=== PATIENT | male | born 1955 | race African-American/Black ===

== ENCOUNTER 2017-08-27 08:26 | Observation (INO) | payer BC, SELFPAY ==
[2017-08-27 08:59] LABS: #Basophils 0.1 thou/uL (0.0-0.2); #Eosinphils 0.2 thou/uL (0.0-0.7); #Lymphocytes 1.7 thou/uL (1.20-3.40); #Monocytes 0.8 thou/uL (0.11-0.59); %Basophils 0.9 % (0.0-1.0); %Eosinophils 1.7 % (0.0-10.0); %Lymphocytes 17.6 % (21.0-51.0); %Monocytes 8.3 % (0.0-10.0); %Neutrophils 71.4 % (42.0-75.0); Hemoglobin 16.6 g/dL (14.0-18.0); Mean Corpuscular HGB CONC 34.2 g/dL (32.0-36.0); Mean Corpuscular Volume 87.6 fl (80.0-94.0); Mean Platelet Volume 7.9 fL (7.4-10.4); Platelet Count 203 thou/uL (130-400); RBC Distribution Width 12.5 % (11.5-14.5); Red Blood Cell (RBC) Count 5.55 mill/uL (4.70-6.10); White Blood Cell (WBC) Count 9.8 thou/uL (4.8-10.8)
[2017-08-27] MEDS ORDERED: Nitroglycerin 0.4 MG TAB (25 Tab Bottle) ONE (08:59)
[2017-08-27 09:10] LABS: PTT 32.1 SEC (22.9-36.1)
[2017-08-27 09:19] LABS: CKMB 1.9 ng/mL (0-6.6); Troponin I Less than 0.010 ng/mL (< 0.028)
[2017-08-27 09:20] LABS: ALT (SGPT) 61 U/L (8-55); AST (SGOT) 36 U/L (5-34); Albumin 4.1 g/dL (3.4-4.8); Alkaline Phosphatase 120 U/L (40-150); Anion Gap 12 mmol/L (10-20); BUN (Urea Nitrogen) 13 mg/dL (8.4-25.7); Bilirubin, Total 0.6 mg/dL (0.2-1.2); CK (CPK) 149 U/L (30-200); Calc. Creatinine Clearance 0 mL/min (70-130); Calcium 9.5 mg/dL (7.8-10.44); Carbon Dioxide 23 mmol/L (23-31); Chloride 106 mmol/L (98-107); Estimated GFR-MDRD 74; Globulin 3.1 g/dL (2.4-3.5); Glucose 113 mg/dL (80-115); Potassium 4.3 mmol/L (3.5-5.1); Protein, Total 7.2 g/dL (5.8-8.1); Sodium 137 mmol/L (136-145)
--- NOTE | 2017-08-27 09:20 | RAD ---
SINGLE VIEW CHEST: Date: 08/27/17 COMPARISON: 11/17/15. HISTORY: Chest pain. FINDINGS: Single view of the chest shows a normal sized cardiomediastinal silhouette. The patient is status pos t sternotomy. There is no evidence of consolidation, mass, or pleural effusion. Degenerative changes are seen in the spine. IMPRESSION: No evidence of acute cardiopulmonary disease. POS: [facility]
[2017-08-27] MEDS ORDERED: Nitroglycerin 2% Ointment 1 INCH/1 GM Packet ONE (10:23)
[2017-08-27] MEDS ORDERED: Morphine 4 MG/ML VIAL ONE (10:23)
[2017-08-27 12:27] LABS: Troponin I 0.011 ng/mL (< 0.028)
--- NOTE | 2017-08-27 13:09 | HP ---
PRIMARY CARE PHYSICIAN: Ms. Austin at [facility]. INTEGRITY CONSULTANT: Dr. Darrian Fink. CHIEF COMPLAINT: Chest pain. HISTORY OF PRESENT ILLNESS: Mr. Tariq is a very pleasant 62-year-old gentleman that has a history of hypertension and coronary artery disease. He had a 3-vessel bypass approximately a year ago in 2016. He says that he had been doing fine since his bypass surgery other than having some dyspn ea on exertion off and on, but he says last night he woke up at about 4:00 in the morning with chest pain from sleep. He says it was pounding and sharp in character, and on the left side of his chest. He said he had difficulty getting comfortable and could barely get himself up. He says that the saurabh n went into the left arm and he was short of breath with this as well. He tried to wait it out, but then called his son to take him to the hospital. He says he arrived at the emergency room about 8:00 in the morning and was given 3 sublingual nitroglycerin and some aspirin. The pain started to impro ve and then completely went away after he was given morphine. He says he has never had pain like thi s before in the past and the way they detected as heart problems before was with shortness of breath. The patient also denies any leg swelling or edema. He does complain of some dyspnea on exertion, b ut no PND, no orthopnea, no palpitations. REVIEW OF SYSTEMS: Constitutional: No fevers, chills, no night sweats, no weight loss. HEENT: No headaches, no dizziness, no visual changes other than that he needs glasses. No sore throat, rhinorr hea, neck pain, no adenopathy. Pulmonary: No hemoptysis, no cough, no wheezing. Cardiovascular: I s as the history of present illness. Gastrointestinal: He denies any nausea, no vomiting, no hemate mesis, no change in bowels. Genitourinary: No urinary frequency, hematuria, no hesitancy. Musculos keletal: No muscle pains, weakness, or joint pains. Neurologic: No focal weakness, numbness, no se izures. Psychiatric: No symptoms of anxiety or depression. Skin and Integument: No skin changes. No rash. PAST MEDICAL HISTORY: Significant for coronary artery disease and hypertension. PAST SURGICAL HISTORY: He has had a 3-vessel bypass a year ago and had a stent placed in November. ALLERGIES: ALBUTEROL, which causes him to itch. SOCIAL HISTORY: He is a nonsmoker. He occasionally drinks. He is single. He has 8 children. He w ishes to be a full code and his surrogate decision maker is Guerrero Tariq, his son, and he is a t the bedside today. FAMILY HISTORY: Significant for heart disease in his brother as well as diabetes in his brother and his mother had bone cancer diagnosed in . CURRENT MEDICATIONS: That he brought in to the ER include metoprolol 50 mg twice a day, simvastatin 40 mg daily, Plavix 75 mg daily, Naprosyn 500 mg twice a day, Flexeril 10 mg twice a day, Tylenol #4 as needed, Imdur extended release 30 mg daily, lisinopril 20 mg daily, aspirin 81 mg a day. PHYSICAL EXAMINATION: GENERAL: He is alert and oriented. He appears to be in no acute distress. VITAL SIGNS: Blood pressure was 137/90, heart rate 85, respiratory rate is 17, temperature is 98.7. HEENT: His pupils are equal, round, and reactive. Extraocular muscles are intact. His sclerae are anicteric. Throat: There is no erythema, no exudates. NECK: No adenopathy, no bruits. LUNGS: Clear to auscultation. I did not appreciate any wheezing or rales. CARDIOVASCULAR: He has a normal S1, S2. I did not appreciate an S3 or S4. No murmurs, clicks, or r ubs. ABDOMEN: Obese, it is soft, it is nontender, nondistended. Positive for bowel sounds. No rebound, no guarding. EXTREMITIES: There is no clubbing, cyanosis, no edema. NEUROLOGICALLY: The exam is grossly nonfocal. LABORATORY AND X-RAY FINDINGS: On his EKG, it is sinus rhythm, the rate is 80. He has an incomplete right bundle branch block. This is by my reading. White blood cell count is 9.8, hemoglobin 16.6, hematocrit is 48.6, platelet count is 203. Sodium 137, potassium 4.3, chloride is 106, CO2 is 23, BU N of 13, creatinine 1.21, glucose is 113. ASSESSMENT AND PLAN: This is a 62-year-old gentleman, who has, 1. A history of coronary artery disease with a bypass surgery approximately a year ago. He came in with chest pain. He states that he is compliant with medications; however, he has developed this harish st pain, which is somewhat atypical. As a precaution, we will place him in observation. Continue to trend his cardiac enzymes and we will get a nuclear stress test to help determine whether he has rec urrent active or acute coronary syndrome. If his stress test is negative and his symptoms continue t o be resolved, then likely he can follow up with his primary diamond wheel molder in the outpatient setting. 2. Hypertension. We will continue his usual medications for blood pressure as well as p.r.n. medica tions as needed.
[2017-08-27] MEDS ORDERED: Milk Of Magnesia 30 ML UDCUP PO PRN (13:33)
[2017-08-27] MEDS ORDERED: Nitroglycerin 0.4 MG TAB (25 Tab Bottle) PO PRN (13:33)
[2017-08-27] MEDS ORDERED: Acetaminophen 325 MG TAB PO PRN (13:33)
[2017-08-27] MEDS ORDERED: Temazepam 15 MG CAP PO PRN (13:33)
[2017-08-27] MEDS ORDERED: Mag-Al 1200 mg/1200 mg/30 ML UDCUP PO PRN (13:33)
[2017-08-27] MEDS ORDERED: Ondansetron ODT 4 MG TAB PO PRN (13:33)
[2017-08-27] MEDS ORDERED: hydrALAZINE 20 MG/ML VIAL SLOW IVP PRN (13:33)
[2017-08-27 14:51] VITALS: BMI 31.1
[2017-08-27] MEDS: Nitroglycerin 2% Ointment 1 INCH/1 GM Packet TOP SCH ×2 (15:25→21:19)
[2017-08-27 15:37] LABS: Cardiac Risk 4.4 (Less than 4.5)
[2017-08-27 15:42] LABS: Troponin I Less than 0.010 ng/mL (< 0.028)
[2017-08-28 04:50] LABS: #Basophils 0.1 thou/uL (0.0-0.2); #Eosinphils 0.2 thou/uL (0.0-0.7); #Lymphocytes 1.9 thou/uL (1.20-3.40); #Monocytes 0.8 thou/uL (0.11-0.59); #Neutrophils 3.6 thou/uL (1.40-6.50); %Basophils 0.9 % (0.0-1.0); %Eosinophils 2.4 % (0.0-10.0); %Lymphocytes 29.5 % (21.0-51.0); %Monocytes 11.9 % (0.0-10.0); %Neutrophils 55.4 % (42.0-75.0); Hemoglobin 15.8 g/dL (14.0-18.0); Mean Corpuscular HGB CONC 34.8 g/dL (32.0-36.0); Mean Corpuscular Hemoglobin 30.8 pg (27.0-31.0); Mean Corpuscular Volume 88.5 fl (80.0-94.0); Mean Platelet Volume 7.8 fL (7.4-10.4); Platelet Count 179 thou/uL (130-400); RBC Distribution Width 12.4 % (11.5-14.5); Red Blood Cell (RBC) Count 5.15 mill/uL (4.70-6.10); White Blood Cell (WBC) Count 6.6 thou/uL (4.8-10.8)
[2017-08-28 05:13] LABS: Anion Gap 11 mmol/L (10-20); BUN (Urea Nitrogen) 12 mg/dL (8.4-25.7); Calc. Creatinine Clearance 84 mL/min (70-130); Calcium 9.4 mg/dL (7.8-10.44); Carbon Dioxide 27 mmol/L (23-31); Chloride 104 mmol/L (98-107); Estimated GFR-MDRD 77; Glucose 113 mg/dL (80-115); Potassium 4.4 mmol/L (3.5-5.1); Sodium 138 mmol/L (136-145)
[2017-08-28] MEDS: Nitroglycerin 2% Ointment 1 INCH/1 GM Packet TOP SCH ×2 (05:26→13:56)
[2017-08-28] MEDS ORDERED: ADENOSINE 60 MG/20 ML VIAL ONE (07:25)
[2017-08-28] MEDS ORDERED: Enoxaparin Sodium 40 MG/0.4 ML SYRINGE SC SCH (09:00)
[2017-08-28] MEDS ORDERED: Aspirin 325 MG TAB PO SCH (09:00)
[2017-08-28 12:02] VITALS: BP 176/94; TEMP 98.1
--- NOTE | 2017-08-28 14:48 | NM ---
NUCLEAR MEDICINE CARDIAC STRESS TEST WITH EJECTION FRACTION: HISTORY: Chest pain, coronary artery bypass graft. Stent for hypertension. FINDINGS: Stress and rest were performed after the intravenous administration of 27 and 9.7 mCi technetium 99m sestamibi, respectively. No evidence of scar or ischemia. Normal wall motion. Ejection fraction is 75%. IMPRESSION: Normal exam. POS: [facility]
--- NOTE | 2017-08-28 15:05 | PDOC.PN ---
- Subjective Encounter Start Date: 08/28/17 Encounter Start Time: 15:03 Mr. Tariq was seen for follow-up. He does not have any complaints. His chest is feeling better. - Objective Resuscitation Status: Resuscitation Status FULL:Full Resuscitation MAR Reviewed: Yes Vital Signs & Weight: Vital Signs (12 hours) Temp Pulse Resp BP Pulse Ox 08/28/17 11:54 98.1 F 84 16 176/94 H 98 08/28/17 08:00 97.9 F 81 18 08/28/17 07:54 97.9 F 81 18 108/72 96 08/28/17 04:25 97.9 F 86 16 112/66 96 Weight Weight 198 lb 9.6 oz I&O: 08/27/17 08/28/17 08/29/17 06:59 06:59 06:59 Intake Total 960 Balance 960 Result Diagrams: 08/28/17 04:22 08/28/17 04:22 Phys Exam - Physical Examination HEENT: PERRLA Respiratory: no wheezing, no rales, no rhonchi, clear to auscultation bilateral Cardiovascular: RRR, no significant murmur, no rub Gastrointestinal: soft, non-tender, positive bowel sounds Musculoskeletal: no edema Dx/Plan (1) Chest pain Code(s): R07.9 - CHEST PAIN, UNSPECIFIED Status: Acute (2) Coronary artery disease Code(s): I25.10 - ATHSCL HEART DISEASE OF [place] CORONARY ARTERY W/O ANG PCTRS Status: Chronic (3) Hypertension Code(s): I10 - ESSENTIAL (PRIMARY) HYPERTENSION Status: Chronic - Plan * Chest pain- likely non-cardiac * Stress test was negative * He is stable for discharge home..
--- NOTE | 2017-08-28 16:04 | DIS ---
DATE OF ADMISSION: 08/27/2017 DATE OF DISCHARGE: 08/28/2017 PRIMARY CARE PHYSICIAN: Natalie Austin N.P. DISCHARGE DISPOSITION: Home. PRIMARY DISCHARGE DIAGNOSES: 1. Chest pain, probable noncardiac. 2. Coronary artery disease. 3. Hypertension. 4. Dyslipidemia. DISCHARGE MEDICATIONS: Include simvastatin 40 mg at bedtime, metoprolol 50 mg twice a day, lisinopri l 20 mg daily, isosorbide mononitrate 30 mg daily extended release, Flexeril 10 mg twice a day, Plavi x 75 mg daily, and aspirin 81 mg a day. CODE STATUS: FULL CODE. ALLERGIES: To ALBUTEROL. HOSPITAL COURSE: Mr. Tariq is a pleasant 62-year-old gentleman who presented to the emergency [facility] with complaints of chest pain. The pain was a bit atypical in characteristics and that it awoke hi m from sleep and it was sharp and stabbing in character; however, due to his extensive coronary arter y disease history, he was placed in observation and ruled out. He underwent a nuclear stress test wh ich was negative. His symptoms had actually resolved the following day and he is being discharged ho md to have close followup with Dr. Fink in which he already has an appointment scheduled in about a week and also with his primary care physician in 1-2 weeks as well.
== END 2017-08-28 16:11 | disposition home or self-care (01) ==
LOC: ERS 08:26 → INTOOBSV 11:26 → ERHOLD 11:26 → 2SW 14:37
PROVIDERS: ADMIT Internal Medicine; ATTEND Internal Medicine
DX: R07.89 Other chest pain (principal); I25.10 Atherosclerotic heart disease of native coronary artery without angina pectoris; I10 Essential (primary) hypertension; E78.5 Hyperlipidemia, unspecified; Z88.8 Allergy status to other drugs, medicaments and biological substances; Z95.1 Presence of aortocoronary bypass graft; Z79.82 Long term (current) use of aspirin; Z79.02 Long term (current) use of antithrombotics/antiplatelets; Z79.899 Other long term (current) drug therapy
CPT/HCPCS: 36415; 71045; 78452; 80048; 80053; 80061; 82553; 83880; 84484; 85025; 85610; 85730; 93005; 93017; 94760; 96374; A9500; G0378; J0153; J2270

== ENCOUNTER 2018-01-29 21:26 | Inpatient (IN) | payer SELFPAY ==
[2018-01-29] MEDS ORDERED: Acetaminophen 325 MG TAB PO PRN (23:39)
[2018-01-29] MEDS ORDERED: Ondansetron ODT 4 MG TAB SL PRN (23:39)
[2018-01-29] MEDS ORDERED: Ondansetron HCl/PF 4 MG/2 ML Vial IVP PRN (23:39)
[2018-01-29] MEDS ORDERED: Nitroglycerin 2% Ointment 1 INCH/1 GM Packet TOP SCH (23:45)
[2018-01-30 00:27] LABS: Troponin I 0.015 ng/mL (< 0.028)
[2018-01-30] MEDS ORDERED: Cyclobenzaprine 10 MG TAB PO PRN (00:36)
--- NOTE | 2018-01-30 01:03 | PDOC.EVN ---
Event Note - Event Note Event Note: we had concern for possibility of pe given presentation, ct angio was not helpful to r/o pe due to technical issues, will do d-dimer if positive will proceed with vqscan, for now we will continue pt on lovenox, this can be adjusted once pe is ruled out/in
[2018-01-30] MEDS ORDERED: Sodium Chloride 0.9% 1,000 ML IV SCH (01:45)
[2018-01-30 03:03] LABS: #Eosinphils 0.1 thou/uL (0.0-0.7); #Lymphocytes 2.1 thou/uL (1.20-3.40); #Monocytes 0.6 thou/uL (0.11-0.59); #Neutrophils 4.3 thou/uL (1.40-6.50); %Basophils 0.6 % (0.0-1.0); %Eosinophils 1.6 % (0.0-10.0); %Lymphocytes 29.2 % (21.0-51.0); %Monocytes 8.5 % (0.0-10.0); %Neutrophils 60.2 % (42.0-75.0); Hemoglobin 14.7 g/dL (14.0-18.0); Mean Corpuscular HGB CONC 35.7 g/dL (32.0-36.0); Mean Corpuscular Hemoglobin 31.6 pg (27.0-31.0); Mean Corpuscular Volume 88.5 fL (78.0-98.0); Platelet Count 182 thou/uL (130-400); RBC Distribution Width 12.2 % (11.5-14.5); Red Blood Cell (RBC) Count 4.65 mill/uL (4.70-6.10); White Blood Cell (WBC) Count 7.1 thou/uL (4.8-10.8)
[2018-01-30 03:22] LABS: Troponin I Less than 0.010 ng/mL (< 0.028)
[2018-01-30 03:27] LABS: Anion Gap 14 mmol/L (10-20); BUN (Urea Nitrogen) 16 mg/dL (8.4-25.7); Calc. Creatinine Clearance 79 mL/min (70-130); Calcium 8.6 mg/dL (7.8-10.44); Carbon Dioxide 18 mmol/L (23-31); Chloride 111 mmol/L (98-107); Estimated GFR-MDRD 75; Glucose 140 mg/dL (80-115); Potassium 3.7 mmol/L (3.5-5.1); Sodium 139 mmol/L (136-145)
[2018-01-30 08:31] LABS: Magnesium 2.1 mg/dL (1.6-2.6); Phosphorus 2.9 mg/dL (2.3-4.7)
[2018-01-30] MEDS ORDERED: Metoprolol Tartrate 50 MG TAB PO SCH (09:00)
[2018-01-30] MEDS ORDERED: Enoxaparin Sodium 40 MG/0.4 ML SYRINGE SC SCH (09:00)
[2018-01-30] MEDS ORDERED: Clopidogrel Bisulfate 75 MG TAB PO SCH (09:00)
[2018-01-30] MEDS ORDERED: Lisinopril 20 MG TAB PO SCH (09:00)
[2018-01-30] MEDS ORDERED: Enoxaparin Sodium 100 MG/ML SYRINGE SC SCH (09:00)
[2018-01-30] MEDS ORDERED: Aspirin 325 MG TAB PO SCH (09:00)
[2018-01-30 12:30] VITALS: BP 116/63; TEMP 98.1
--- NOTE | 2018-01-30 12:33 | CON ---
DATE OF CONSULTATION: 01/30/2018 REASON FOR CONSULTATION: Syncope. HISTORY OF PRESENT ILLNESS: Mr. Tariq is a pleasant 62-year-old -French gentleman, a pat ient of Dr. Darrian Fink, who comes to the hospital for a syncopal spell. He was at two different [employer] functions. He was outside, sweating a lot, it was really hot. He did not really drink any fluid s except for two beers and he started feeling lightheaded, had to sit down, was not feeling any rodríguez r, so he asked his family take him to the hospital. When he got into the car, he passed out for abou t 5 minutes. Family try to parenterally wake him up until eventually he came about. In the ER, he w as found to be mildly hypertensive, given some fluids and felt much better. He has a history of anni nary artery disease with bypass grafting x3 about 1 year ago at the [facility]. He denies any chest pain, tightness, pressure, no shortness of breath. He actually had a stress test in July of this year which was negative. He feels much better now and he feels that the main probl em is he was not drinking enough fluid. PAST MEDICAL HISTORY: 1. Coronary artery disease status post CABG x3 a year ago. 2. Hyperlipidemia. 3. Hypertension. 4. Bronchial asthma. OUTPATIENT MEDICATIONS: 1. Lisinopril 20 mg a day 2. Aspirin 81 mg a day. 3. Metoprolol tartrate 25 mg twice a day. 4. Simvastatin 20 mg at bedtime. ALLERGIES: ALBUTEROL gives him a rash. SOCIAL HISTORY: Former drug user. He abuses cocaine, but none for many years. No smoking. Social alcohol use. FAMILY HISTORY: Noncontributory. PAST SURGICAL HISTORY: CABG x3, April 2017. REVIEW OF SYSTEMS: Twelve point review of systems was done and is all negative unless stated in hist ory of present illness. PHYSICAL EXAMINATION: VITAL SIGNS: Temperature on arrival 100.7 more lately 97.2, respiratory rate 16, satting 99% on room air, blood pressure 149/78, heart rate 77. GENERAL: Awake, alert, oriented x3, in no distress. HEENT: Normocephalic, atraumatic. NECK: Supple. LUNGS: Clear. CARDIOVASCULAR: S1, S2, no S3, S4, no murmurs. ABDOMEN: Soft, positive bowel sounds. EXTREMITIES: No edema. SKIN: Warm and dry. LABORATORY WORK: Reviewed. CBC was unremarkable. D-dimer was normal. Chemistries are normal excep t for chloride 111, hematocrit of 18, BUN and creatinine normal, GFR 75, glucose of 140. Troponin wa s negative x2. BNP was 14. Echocardiogram was reviewed, normal LV function, mild AI and mild MR. CT of the chest was reviewed, no evidence of PE. There were some vessels that were not seen adequate ly, but overall unremarkable. ASSESSMENT: 1. Syncope. 2. Coronary artery disease, stable. No acute coronary syndrome. 3. Hypertension. PLAN: Most likely his presentation is related to orthostatic hypotension from being dehydrated. I r ecommended that he has remained hydrated very well, not just with alcohol as this is actually the opp osite of getting hydrated. He understand, verbalized understanding of this. If this were to recur, he will be a candidate for monitoring, not at this time. I think we have a good reason for his episo de. I do not think he has any present cardiac issues. He is not having an acute coronary syndrome a nd I do not think this is related to a rhythm issue per history, most likely is just hypotension from being outside in the heat. Thank you for letting us participate in the care of your patient. He may follow up with his primary payroll tax specialist, Dr. Fink. We will sign off. Please call with any questions.
--- NOTE | 2018-01-30 14:03 | HP ---
DATE OF ADMISSION: 01/29/2018 PRIMARY CARE PHYSICIAN: Patient has no PCP. CODE STATUS: FULL CODE. TIME OF EVALUATION: 12:30 p.m. HISTORY OF PRESENT ILLNESS: This is a 62-year-old male patient with past medical history of strong c oronary artery disease, status post reported CABG, stent placement, hyperlipidemia, hypertension, cam e to the hospital after having an episode of syncope. He reported he was in a family reunion and on the sudden, he got some food and drinks and then the next thing, he knew that he was in the hospital, patient does not remember well. He was told that he was sweating, he does not remember having any c hest pain, no seizure activity was reported. No clear triggers, no alleviating factors. Patient was positive for alcohol and cocaine in urine. REVIEW OF SYSTEMS: Constitutional: Patient had no fever, chills, or generalized weakness. Respirat ory: No cough, sputum production, or shortness of breath. Cardiovascular: No chest pain, palpitati ons, shortness of breath. Gastrointestinal: No nausea, vomiting, diarrhea, or abdominal pain. CASHIER CREDIT: No dizziness, headache, or feeling lightheaded. Genitourinary: No burning on urination. Extremit ies: Right leg swelling secondary to previous CABG. PAST MEDICAL HISTORY: Reported in the HPI. SOCIAL HISTORY: Patient is positive for cocaine. Drinks alcohol. No smoking history. He is at [facility] with family. PAST SURGICAL HISTORY: Coronary artery disease, CABG surgery x3 vessels. PSYCHIATRIC HISTORY: No previous psychiatric history. FAMILY HISTORY: Mother and father with cancer, brother with CABG. DRUG ALLERGIES: ALBUTEROL. REPORTED MEDICATIONS: Lisinopril, aspirin, metoprolol, simvastatin. Patient was noncompliant, not t aking medication. He reported he had no doctors that he can see. PHYSICAL EXAMINATION: VITAL SIGNS: On presentation, blood pressure 133/80 with heart rate 88, respiratory rate was 22, tem perature 100.7, this was once in a year. temperature was normal. GENERAL APPEARANCE: The patient is alert, oriented, not in any acute distress. HEENT: Eye, Normal conjunctivae. Moist oral mucosa. Anicteric. NECK: No JVD. RESPIRATORY: Bilateral air entry. No rales, no wheezing. Symmetric expansion. CARDIOVASCULAR: Normal rate, regular rhythm. No murmurs, no gallop. No edema. ABDOMEN: Soft, normal bowel sounds. MUSCULOSKELETAL: Baseline range of motion and strength. No tenderness. SKIN: Warm and dry. No pallor, no rash or redness. Peripheral pulses are present. Capillary refil ls seems to be intact. NEUROLOGIC: Baseline sensory. No evidence of any new focal weakness. Baseline speech. Cranial ner ve seems to be intact. PSYCHIATRIC: Patient is in good mood, no anxiety, oriented, optimal judgment. IMAGING: EKG was reviewed by myself. Patient has normal sinus rhythm at the rate of 96 with AK 162, QRS 100, QT corrected 457, incomplete RBBB. Patient has T-wave inversion in V6 and possible ST depr ession in inferior leads . CT angio was reviewed. The patient has due to the poor IV contrast and bolus timing, the branches of the left and right main pulmonary arteries cannot be evaluated for pulmonary thromboembolism. No pulmonary thromboembolism in the pulmonic trunk or in the left or righ t main pulmonary arteries, normal thoracic aorta, status post coronary artery bypass surgery with rebecca dence of coronary artery disease and hepatic steatosis. LABORATORY DATA: Reviewed. White count 9.7, hemoglobin 17, MCV 86, platelet count 289. Coagulation was not done this admission. Chemistry showed sodium 140, potassium 3.5, chloride 108, carbon dioxi de 17, anion gap 19, BUN 16, creatinine 1.6 and previous admission early this year was 1.1, glucose 1 21. Urine was done and was negative. Toxicology was done and positive for cocaine. Plasma alcohol level was 20. ASSESSMENT AND PLAN: The patient will be placed in the hospital with following medical problems: 1. Syncope, unclear etiology, patient has strong coronary artery disease. We will do echo, we will do carotid Doppler, we will monitor on tele, follow troponins, further workup and consultation depend ing on the initial workup results. 2. Acute kidney injury. Creatinine 1.6. The previous on this year was 1.1. There is an increase i n more than 0.3 mg per deciliter of creatinine, might be prerenal. Patient will be on dry side, we w ill give hydration with calcium given history of coronary artery disease. 3. Hyperglycemia, 121 likely secondary to acute physical distress, no history of diabetes reported, we will follow, no need for any acute intervention at this point. 4. Cocaine abuse. Patient has positive urine for cocaine, also patient was positive for alcohol ___ __ low in the 20 range. Patient denies using cocaine in the present time, advised to stop using coca ine. 5. History of coronary artery disease, EKG, no significant for acute coronary syndrome, tropon ins, we will monitor, adjust treatment as needed. We will reconcile previous home medications. 6. Noncompliance, patient reported has no financial troubles on seeing a doctor, advised to go to [facility]. 7. Uncontrolled hypertension, systolic blood pressure of , reconcile home medications, adjust t reatment as needed. 8. Hyperlipidemia, low-cholesterol diet is advised, reconcile home medications. 9. Deep venous thrombosis prophylaxis.
[2018-01-30] MEDS ORDERED: Atorvastatin Calcium 20 MG TAB PO SCH (21:00)
--- NOTE | 2018-02-01 10:39 | DIS ---
DISCHARGE DISPOSITION: Home. FOLLOWUP: 1. Follow up with primary care physician, Dr. Valencia in 1 week. 2. Follow up with primary patrol agent Dr. Darrian Fink. 3. A 24-hour supervision with fall precaution was recommended. He was also advised to call Dr. Bernardo johnson's office after 1-2 days for setting up event monitor. He stated understanding. BRIEF HOSPITAL COURSE: The patient is a 62-year-old male with coronary artery disease, who presented to the emergency room with a syncopal episode. Please refer to the history and physical for further details. The patient was admitted to the hospital with a diagnosis of syncope secondary to dehydration. His i nitial creatinine was 1.60 that improved to 1.19 with IV hydration. His BNP was 14.9. Urine drug sc reen was positive for cocaine. He also was found to have elevated alcohol level of 20. Lifestyle mo dification was extensively emphasized. His D-dimer was negative. Telemetry monitoring did not show significant arrhythmias. The patient was seen by Cardiology, Dr. Way. Dr. Way recommended the patient to follow up with his primary patrol agent, Dr. Fink. His syncope was probably secondary to hypotension from being outside in the heat as well as dehydration. Echocardiogram showed left corey tricular ejection fraction of 55% to 60% with grade 2/3 diastolic dysfunction, mild mitral regurgitat ion, mild aortic regurgitation and mildly dilated left atrium. FINAL DIAGNOSES: 1. Syncope secondary to hypotension and acute kidney injury. No new episodes. 2. Cocaine abuse. Patient was counseled. 3. Alcohol abuse. Patient was counseled. 4. Coronary artery disease. His troponins remain negative. 5. History of coronary artery bypass grafting. 6. Hypertension. 7. Hyperlipidemia. DIAGNOSTIC TESTS: CT brain was negative. Chest x-ray was negative. CT angiogram of the chest was n egative for pulmonary embolism in the main pulmonary arteries. Plan of care was discussed with the patient in detail. He stated understanding.
== END 2018-01-30 15:03 | disposition home or self-care (01) | DRG 684 ==
LOC: 2SW 23:29
PROVIDERS: ADMIT Hospitalist; ATTEND Hospitalist
DX: N17.9 Acute kidney failure, unspecified (principal); R55 Syncope and collapse; E86.0 Dehydration; I95.1 Orthostatic hypotension; F14.10 Cocaine abuse, uncomplicated; F10.10 Alcohol abuse, uncomplicated; I25.10 Atherosclerotic heart disease of native coronary artery without angina pectoris; I10 Essential (primary) hypertension; E78.5 Hyperlipidemia, unspecified; I08.3 Combined rheumatic disorders of mitral, aortic and tricuspid valves; Z95.1 Presence of aortocoronary bypass graft
CPT/HCPCS: 36415; 80048; 83735; 83880; 84100; 84484; 85025; 85379; 93306

== ENCOUNTER 2019-03-21 11:45 | Emergency (ER) | payer OTHER ==
[2019-03-21] MEDS ORDERED: Nitroglycerin 0.4 MG TAB 1 EACH ONE (12:07)
--- NOTE | 2019-03-21 12:43 | RAD ---
PORTABLE UPRIGHT FRONTAL RADIOGRAPH CHEST: 03/21/2019 HISTORY: Headache. Chest tightness. Tooth path. COMPARISON: 01/29/2018 FINDINGS: Midline sternotomy wires and mediastinal clips are present. No pneumothorax, pleural fluid, focal con solidation or alveolar edema. Mild eventration of the right hemidiaphragm noted. IMPRESSION: No acute findings. POS: [facility]
[2019-03-21 13:00] LABS: ALT (SGPT) 51 U/L (8-55); AST (SGOT) 30 U/L (5-34); Albumin 4.3 g/dL (3.4-4.8); Alkaline Phosphatase 136 U/L (40-110); Anion Gap 13 mmol/L (10-20); BUN (Urea Nitrogen) 15 mg/dL (8.4-25.7); Bilirubin, Total 0.4 mg/dL (0.2-1.2); Calc. Creatinine Clearance 0 mL/min (70-130); Calcium 9.7 mg/dL (7.8-10.44); Carbon Dioxide 25 mmol/L (23-31); Chloride 106 mmol/L (98-107); Estimated GFR-MDRD 83; Globulin 3.2 g/dL (2.4-3.5); Glucose 140 mg/dL (80-115); Potassium 3.7 mmol/L (3.5-5.1); Protein, Total 7.5 g/dL (5.8-8.1); Sodium 140 mmol/L (136-145)
[2019-03-21] MEDS ORDERED: Ketorolac Tromethamine 30 MG/ML VIAL ONE (13:28)
[2019-03-21 14:40] LABS: #Eosinphils 0.1 thou/uL (0.0-0.7); #Lymphocytes 1.8 thou/uL (1.20-3.40); #Monocytes 0.6 thou/uL (0.11-0.59); #Neutrophils 5.4 thou/uL (1.40-6.50); %Basophils 0.3 % (0.0-1.0); %Eosinophils 1.3 % (0.0-10.0); %Lymphocytes 22.4 % (21.0-51.0); Hemoglobin 16.4 g/dL (14.0-18.0); Mean Corpuscular HGB CONC 33.6 g/dL (32.0-36.0); Mean Corpuscular Volume 89.4 fL (78.0-98.0); Mean Platelet Volume 8.6 fL (7.4-10.4); Platelet Count 190 thou/uL (130-400); Red Blood Cell (RBC) Count 5.48 mill/uL (4.70-6.10)
[2019-03-21] MEDS ORDERED: HYDROcodone/Acetaminophen 5/325 mg Tablet ONE (15:08)
== END 2019-03-21 15:14 | disposition home or self-care (01) ==
LOC: ERS 11:45
DX: I10 Essential (primary) hypertension (principal); K02.9 Dental caries, unspecified; E78.5 Hyperlipidemia, unspecified; J45.909 Unspecified asthma, uncomplicated; I25.119 Atherosclerotic heart disease of native coronary artery with unspecified angina pectoris; I25.2 Old myocardial infarction; Z79.899 Other long term (current) drug therapy; Z79.82 Long term (current) use of aspirin
CPT/HCPCS: 36415; 71045; 80053; 83880; 84484; 85025; 93005; 96374; J1885

== ENCOUNTER 2019-06-09 21:36 | Emergency (ER) | payer OTHER | END 2019-06-09 22:26 | disposition home or self-care (01) | LOC: ERS 21:36 | DX: J06.9 Acute upper respiratory infection, unspecified (principal); I25.10 Atherosclerotic heart disease of native coronary artery without angina pectoris; E78.5 Hyperlipidemia, unspecified; I10 Essential (primary) hypertension; Z79.899 Other long term (current) drug therapy | CPT/HCPCS: 87804; 99283 ==